=== PATIENT | female | born 1930 | race African-American/Black ===

== ENCOUNTER 2018-05-24 18:45 | Emergency (ER) | payer OTHER ==
[~2018-05-24] VITALS: Ht 152.4 cm; Wt 54.4 kg
[2018-05-24] MEDS ORDERED: SPIRONOLACTONE25 M1 PO (19:22)
[2018-05-24 20:30] VITALS: BP 133/75
[2018-05-24] MEDS ORDERED: ACYCLOVIR 800800 MG PO (20:54)
[2018-05-24] MEDS ORDERED: KEFLEX500 M1 PO (20:54)
== END 2018-05-24 21:18 | disposition home or self-care (01) ==
LOC: ER 18:45
DX: L73.9 Follicular disorder, unspecified (principal); Z86.19 Personal history of other infectious and parasitic diseases; Z96.641 Presence of right artificial hip joint; Z88.5 Allergy status to narcotic agent; Z88.8 Allergy status to other drugs, medicaments and biological substances

== ENCOUNTER 2021-03-21 18:45 | Emergency (ER) | payer OTHER ==
[~2021-03-21] VITALS: Ht 152.4 cm; Wt 56.7 kg
[~2021-03-21 18:45] MED LIST: ACYCLOVIR 800800 MG PO; KEFLEX500 M1 PO; SPIRONOLACTONE25 M1 PO
[2021-03-21] MEDS ORDERED: LIPITOR 20 MG T20 M1 PO (19:32)
[2021-03-21] MEDS ORDERED: AUGMENTIN 875-1 EACH PO (20:18)
[2021-03-21 20:50] VITALS: BP 141/75
== END 2021-03-21 20:58 | disposition home or self-care (01) ==
LOC: ER 18:45
DX: J01.90 Acute sinusitis, unspecified (principal); Z20.822 Contact with and (suspected) exposure to COVID-19; I10 Essential (primary) hypertension; Z79.899 Other long term (current) drug therapy; Z88.5 Allergy status to narcotic agent; Z88.8 Allergy status to other drugs, medicaments and biological substances